=== PATIENT | female | born 1990 | race Caucasian/White ===

== ENCOUNTER 2016-08-17 13:08 | Emergency (ER) | payer MEDICAID, OTHER ==
--- NOTE | 2016-08-17 13:53 | ED Physician Chart ---
Chief Complaint/HPI - Patient Information Chief Complaint:: NEAR SYNCOPAL EPISODED History of Present Illness:: Patient is a poor historian but had another syncopal episode around noontime today. The patient had been having anxiety which she attributes to having drank 5 cups of coffee yesterday and to this a.m. Furthermore the patient has been recently smoking marijuana and using meth. She thinks that the marijuana may be synthetic marijuana and containing other chemicals. Patient has been out in the heat today and was exercising and was losing a lot of sweat. She has been drinking a lot of fluids but not having urinary frequency. She denies any headache, chest pain, abdominal pain or recent head injury. She has mild shortness of breath which is resolved. Patient was recently hospitalized for 5 days and a minimal facility and was placed on a 5150. She denies any suicidal ideation or homicidal ideation. Allergies:: Allergies Allergy/AdvReac Type Severity Reaction Status Date / Time No Known Allergies Allergy Verified 08/17/16 13:16 Vitals:: Vital Signs - 8 hr 08/17/16 13:16 Temp 99.9 F HR 62 RR 18 BP 113/72 O2 Sat % 99 Review of Systems - Review of Systems General/Constitutional: No fever, No chills, No weight loss, No weakness, Diaphoresis, No edema, No loss of appetite Skin: No skin lesions, No rash, No bruising Head: No headache, Light headed Eyes: No loss of vision, No pain, No diplopia ENT: No earache, No nasal drainage, No sore throat, No tinnitus Neck: No neck pain, No swelling, No thyromegaly, No stiffness, No mass noted Cardio Vascular: No chest pain, No palpitations, No orthopnea, No edema Pulmonary: SOB (the patient had mild shortness of breath which is currently resolved.) GI: Nausea, No vomiting, Diarrhea (1 episode of diarrhea in the past 3 days.), No pain, Constipation, No hematemesis G/U: No dysuria, No frequency, No hematuria Smudger: No vaginal discharge, No abnormal vaginal bleed Musculoskeletal: No bone or joint pain, Back pain (the patient thinks her back pain may be secondary to constipation.) Endocrine: No polyuria, Polydipsia Psychiatric: Prior psych history, Depression, No anxiety, No suicidal ideation, Other (bipolar disorder.) Hematopoietic: No bruising, No lymphadenopathy Allergic/Immuno: No urticaria, No angioedema Neurological: No syncope (had episode of near-syncope today.), No focal symptoms , No weakness, No headache, No seizure, Dizziness, No confusion, No vertigo Past Medical History - Past Medical History Past Medical History: Other (no history of hypertension, diabetes, heart disease , CHF, pulmonary embolus, seizure disorder, or arthritis. She does have a prior psychiatric history of bipolar disorder.) Family History: Other (bipolar disorder in multiple family members.) Social History: Smoker, No Alcohol, Illicit Drug Use, Single, Care Facility Family Medical History - Family Member Mother History Unknown: Yes Ethnicity: Non- Living Status: Still Living Other Medical History: Bipolar Physical Exam - Physical Examination General/Constitutional: Well-developed, well-nourished, Alert, No distress, GCS 15, Non-toxic appearing, Ambulatory Other Gen/Cons comments:: Nursing vital signs reviewed with temperature of 99.3 pulse 62 respirations 18 blood pressure 113/72 and 99% O2 sat. Head: Atraumatic Eyes: Lids, conjuctiva normal, PERRL, EOMI Other Eyes comments:: No nystagmus. The sclera are not jaundiced. Skin: Nl inspection, No rash, No skin lesions, No ecchymosis, Well hydrated, No lymphadenopathy ENMT: External ears, nose nl, TM canals nl, Nasal exam nl, Lips, teeth, gums nl , Oropharynx nl, Tonsils nl Neck: Nontender, Full ROM w/o pain, No JVD, No nuchal rigidity, No bruit, No mass, No stridor Respiratory: Nl effort/Exclusion, No Wheeze/Rhonchi/Rales Cardio Vascular: RRR, No murmur, gallop, rubs, NL S1 S2 Other Cardio Vascular comments:: Good peripheral pulses in all 4 extremities. GI: No tenderness/rebounding/guarding, No organomegaly, No hernia, Normal BS's, Nondistended, No mass/bruits, No McBurney tenderness Other GI comments:: Rectal exam deferred to my discretion. : No CVA tenderness Other comments:: No pelvic examination indicated. Extremities: No tenderness or effusion, Full ROM, normal strength in all extremities, No edema Neuro/Psych: Alert/oriented, DTR's symmetric, Normal sensory exam, Normal motor strength, Mood normal, Normal gait, No focal deficits Misc: Normal back, No paraspinal tenderness Labs/Radiology/EKG Results - EKG Interpretations EKG Time:: 14:10 Rate & Rhythm: sinus bradycardia at a rate of 49 with no ectopy. Intervals: the WI interval is normal. QRS duration normal. The QT interval is normal ED Septic Shock - <6hrs of presentation: Vital Signs: Vital Signs - 8 hr 08/17/16 13:16 Temp 99.9 F HR 62 RR 18 BP 113/72 O2 Sat % 99 Reassessment (Disposition) - Reassessment Reassessment Condition:: Improved - Diagnosis Diagnosis:: 1) NEAR SYNCOPE 2) DEHYDRATION 3) HEAT ILLNESS 4) MARIJUANA abuse.
[2016-08-17] MEDS ORDERED: Sodium Chloride 0.9% 1,000 ML IV ONE (13:57)
[2016-08-17] MEDS: Sodium Chloride 0.9% 1,000 ML IV ONE (14:03)
[2016-08-17 14:20] LABS: % BASOPHILS 0.7 % (0.0-2.0); % EOSINOPHILS 0.3 % (0.0-5.0); % LYMPHOCYTES 17.7 % (20.0-50.0); % MONOCYTES 4.3 % (2.0-10.0); HEMATOCRIT 34.4 % (35.0-45.0); HEMOGLOBIN 11.8 gm/dL (11.7-15.5); MEAN CELL VOLUME 91.9 fl (81-100); MEAN CORPUSCULAR HEMOGLOBIN 31.6 pg (27.0-31.0); MEAN CORPUSCULAR HGB CONC 34.4 pg (28.0-36.0); MEAN PLATELET VOLUME 8.4 fl; NEUTROPHILE ABSOLUTE 5.3 Th/cmm (1.8-8.0); RED BLOOD COUNT 3.74 Mil/cmm (3.80-5.10); RED CELL DISTRIBUTION WIDTH 11.8 % (11.5-20.0)
[2016-08-17 14:21] LABS: PLATELET COUNT 225 Th/cmm (150-400); WHITE BLOOD COUNT 6.8 Th/cmm (4.8-10.8)
[2016-08-17 14:44] LABS: ALB/GLOB RATIO 1.8 (1.0-1.8); ALKALINE PHOSPHATASE 42 U/L (34-104); BILIRUBIN,TOTAL 0.4 mg/dL (0.3-1.0); BUN - UREA NITROGEN 13 mg/dL (7-25); CALCIUM SERUM 9.8 mg/dL (8.6-10.3); CARBON DIOXIDE 27.5 mEq/L (21.0-31.0); CHLORIDE 110 mEq/L (98-107); GLUCOSE 99 mg/dL (70-105); POTASSIUM SERUM 4.5 mEq/L (3.5-5.1); SGOT 18 U/L (13-39); SGPT/ALT 19 U/L (7-52); SODIUM SERUM 139 mEq/L (136-145)
== END 2016-08-17 17:03 | disposition home or self-care (01) ==
LOC: ER 13:08
DX: T67.1XXA Heat syncope, initial encounter (principal); R19.7 Diarrhea, unspecified; F17.200 Nicotine dependence, unspecified, uncomplicated; F12.10 Cannabis abuse, uncomplicated; X58.XXXA Exposure to other specified factors, initial encounter; Y93.89 Activity, other specified; Y92.89 Other specified places as the place of occurrence of the external cause; Y99.8 Other external cause status
CPT/HCPCS: 36415-UA; 80053-TC; 84484-TC; 85025-TC; 85379-TC; 93005; J7030

== ENCOUNTER 2017-08-14 20:54 | Emergency (ER) | payer OTHER, MEDICAID ==
--- NOTE | 2017-08-14 21:30 | ED Physician Chart ---
ED Chief Complaint/HPI - Patient Information Date Seen:: 08/14/17 Time Seen:: 21:15 Chief Complaint:: delusions History of Present Illness:: Patient's been staying with her current male roommate for the last 9 days. She thinks he may be trying to poison her. Specifically she thinks he may have some poison in his body especially in his nose. She heard voices earlier today and has also had some visual hallucinations which he describes as seeing shadows. Only drug patient used recently is marijuana. She did drink a beer yesterday. Patient's was using bath salts in 2016 at 2017. Patient states she was in a rehabilitation center from August to November 2016. Allergies:: Allergies Allergy/AdvReac Type Severity Reaction Status Date / Time No Known Allergies Allergy Verified 08/17/16 13:16 Vitals:: Vital Signs - 8 hr 08/14/17 20:55 Temp 97.5 F HR 50 RR 17 BP 120/77 O2 Sat % 100 Historian:: Patient, EMS Review:: Nurse's Note Reviewed ED Review of Systems - Review of Systems General/Constitutional: No fever, No chills, No weight loss, No weakness, No diaphoresis, No edema, No loss of appetite Skin: No skin lesions, No rash, No bruising Head: No headache, No light-headedness Eyes: No loss of vision, No pain, No diplopia ENT: No earache, No nasal drainage, No sore throat, No tinnitus Neck: No neck pain, No swelling, No thyromegaly, No stiffness, No mass noted Cardio Vascular: No chest pain, No palpitations, No PND, No orthopnea, No edema Pulmonary: No SOB, No cough, No sputum, No wheezing GI: No nausea, No vomiting, No diarrhea, No pain, No melena, No hematochezia, No constipation, No hematemesis G/U: No dysuria, No frequency, No hematuria Musculoskeletal: No bone or joint pain, No back pain, No muscle pain Endocrine: No polyuria, No polydipsia Psychiatric: Prior psych history, No suicidal ideation, No homicidal ideation, Visual hallucination Hematopoietic: No bruising, No lymphadenopathy Allergic/Immuno: No urticaria, No angioedema Neurological: No syncope, No focal symptoms, No weakness, No paresthesia, No headache, No seizure, No dizziness, No confusion, No vertigo ED Past Medical History - Past Medical History Past Medical History: No significant medical hx Social History: Non Smoker, Alcohol Surgical History: None Psychiatricy History: Bipolar, Other (schizoaffective disorder) Medication: None Medication Reviewed:: Patient was formerly on lithium Family Medical History - Family Member Mother History Unknown: Yes Ethnicity: Non- Living Status: Still Living Hx Family Hypertension: Yes ED Septic Shock - . Is Septic Shock (SBP<90, OR Lactate>4 mmol\L) present?: No - <6hrs of presentation: Vital Signs: Vital Signs - 8 hr 08/14/17 20:55 Temp 97.5 F HR 50 RR 17 BP 120/77 O2 Sat % 100 ED Reassessment (Disposition) - Reassessment Reassessment:: Disposition per Dr. Valentin Reassessment Condition:: Unchanged - Diagnosis Diagnosis:: Schizoaffective disorder; bipolar; medically stable ED Discharge Plan - Patient Disposition Instructions: Psychosis
[2017-08-14 21:50] LABS: % LYMPHOCYTES 35.9 % (20.0-50.0); RED CELL DISTRIBUTION WIDTH 13.7 % (11.5-20.0)
[2017-08-14 21:50] LABS: URINE SOURCE MIDSTREAM
[2017-08-14 21:53] LABS: % BASOPHILS 1.1 % (0.0-2.0); % EOSINOPHILS 2.5 % (0.0-5.0); % MONOCYTES 4.1 % (2.0-10.0); % NEUTROPHILS 56.4 % (40.0-80.0); BASOPHILE ABSOLUTE 0.1 Th/cumm (0-0.2); EOSINOPHILE ABSOLUTE 0.2 Th/cmm (0.1-0.4); HEMATOCRIT 37.6 % (41.0-60); HEMOGLOBIN 12.9 gm/dL (12-16); LYMPHOCYTE ABSOLUTE 2.3 Th/cmm (1.5-3.0); MEAN CELL VOLUME 91.9 fl (81-100); MEAN CORPUSCULAR HEMOGLOBIN 31.5 pg (27.0-31.0); MEAN CORPUSCULAR HGB CONC 34.3 pg (28.0-36.0); MEAN PLATELET VOLUME 8.4 fl; MONOCYTE ABSOLUTE 0.3 Th/cmm (0.3-1.0); NEUTROPHILE ABSOLUTE 3.6 Th/cmm (1.8-8.0); PLATELET COUNT 305 Th/cmm (150-400); WHITE BLOOD COUNT 6.5 Th/cmm (4.8-10.8)
[2017-08-14 21:54] LABS: URINE BILIRUBIN NEGATIVE (NEGATIVE); URINE BLOOD NEGATIVE (NEGATIVE); URINE GLUCOSE (UA) NEGATIVE (NEGATIVE); URINE KETONE NEGATIVE (NEGATIVE); URINE LEUKOCYTE ESTERASE NEGATIVE (NEGATIVE); URINE NITRATE NEGATIVE (NEGATIVE); URINE PH 6.5 (4.6 - 8.0); URINE PROTEIN NEGATIVE (NEGATIVE); URINE UROBILINOGEN 0.2 E.U./dL (0.2 - 1.0)
[2017-08-14 21:59] LABS: URINE CLARITY CLEAR (CLEAR); URINE COLOR YELLOW; URINE MICROSCOPIC INDICATED? NO
[2017-08-14 22:02] LABS: AMPHETAMINE URINE NEGATIVE (NEGATIVE); BARBITURATES URINE NEGATIVE (NEGATIVE); BENZODIAZEPINES QUAL URINE NEGATIVE (NEGATIVE); CANNABINOID THC POSITIVE (NEGATIVE); COCAINE METABOLITE QUAL URINE NEGATIVE (NEGATIVE); METHADONE URINE NEGATIVE (NEGATIVE); METHAMPHETAMINES QUAL URINE NEGATIVE (NEGATIVE); OPIATES (MORPHINE) QUAL. URINE NEGATIVE (NEGATIVE); PHENCYCLIDINE (PCP) URINE NEGATIVE (NEGATIVE); TRICYCLICS (TCA) QUAL. URINE NEGATIVE (NEGATIVE)
[2017-08-14 22:13] LABS: ANION GAP 8.8 (7.0-16.0); BUN - UREA NITROGEN 9 mg/dL (7-25); CALCIUM SERUM 9.5 mg/dL (8.6-10.3); CARBON DIOXIDE 29.3 mEq/L (21.0-31.0); CHLORIDE 102 mEq/L (98-107); CREATININE - SERUM 0.6 mg/dL (0.6-1.2); GFR AFRICAN-AMERICAN > 60.0 ml/min (>90); GFR NON AFRICAN-AMERICAN > 60.0 ml/min; GLUCOSE 81 mg/dL (70-105); MAGNESIUM 2.4 mg/dL (1.9-2.7); POTASSIUM SERUM 4.1 mEq/L (3.5-5.1); SODIUM SERUM 136 mEq/L (136-145)
[2017-08-14 22:26] LABS: ACETAMINOPHEN < 10.0 ug/mL (10.0-30.0); SALICYLATES (ASPIRIN) < 25.0 mg/L (30.0-100.0)
--- NOTE | 2017-08-16 02:14 | Consultation ---
DATE OF CONSULTATION: 08/15/2017 REASON FOR CONSULTATION: Psych eval. HISTORY OF PRESENT ILLNESS: A 27-year-old female, currently in the ER, coming into the ER because she feels that her food is being poisoned. She notes that she has been having "a lot of energy" getting involved in "martial arts training," feels that her food may be tainted, someone may be trying to "assassinate me." The patient was disorganized on exam, not making any sense, talking about multiple different topics. Notes that she is living with a man, later describes the man as her boyfriend. States that she is smoking marijuana, "maybe there is something else in there" is what she tells me. The patient is noting that she is not sleeping very well, sometimes eating, sometimes not eating, "I've been eating too much, now I'm not eating anything at all, I'll try to calm down." PAST PSYCHIATRIC HISTORY: 5150 hold in the past from meth use, anxiety. Denies suicide history. ____ to eating disorders and eating disorder clinics in the past. FAMILY PSYCHIATRIC HISTORY: Notes her mother has bipolar. SOCIAL HISTORY: Born in [place]. Notes her mom is [place], her father is from [place]. The patient notes that she graduated from high school. She had been going to [employer], not going anymore. The patient is using THC and alcohol. MEDICAL: She is medically cleared. MENTAL STATUS EXAMINATION: Stated age, small-statured female, fair eye contact. Mood, "a lot of energy." Affect; broad, sometimes inappropriate. Thought processes are disorganized. No overt SI or HI, but she is quite psychotic, paranoid, believing that someone may be trying to poison her food, not eating any food in the ER. Insight and judgment diminished. Impulse control is questionable. PROVISIONAL DIAGNOSES: Psychosis, unspecified; rule out bipolar affective disorder, also substance-induced mood disorder, substance-induced psychosis. THC use disorder, unspecified; rule out meth use disorder. MEDICAL: Please see full H and P. RECOMMENDATIONS AND PLAN: We will initiate a 5150 hold. I did attempt to contact mom and left a voice message. At this juncture, I am concerned about her safety given her psychotic symptoms. She feels her food is being poisoned. She states she is not eating very well. We will err on the side of caution, recommend inpatient psych transfer. JOB# [id number]
== END 2017-08-18 02:05 ==
LOC: ER 20:54
DX: F25.0 Schizoaffective disorder, bipolar type (principal)
CPT/HCPCS: 36415-UA; 80048-TC; 80307; 80320-TC; 80329-TC; 81003-TC; 81025-TC; 83735-TC; 85025-TC; Z7502